=== PATIENT | female | born 1970 | race Caucasian/White ===

== ENCOUNTER 2022-04-13 00:33 | Emergency (ER) | payer SELFPAY ==
[~2022-04-13] VITALS: Ht 149.9 cm; Wt 58.1 kg
[2022-04-13] MEDS ORDERED: ACETAMINOPHEN 325MG TABLET PO STA (02:00)
[2022-04-13] MEDS ORDERED: NAPR-681 PO (04:06)
[2022-04-13 04:33] VITALS: BP 116/82
== END 2022-04-13 04:35 | disposition home or self-care (01) ==
LOC: ER 00:33
DX: S00.83XA Contusion of other part of head, initial encounter (principal); X58.XXXA Exposure to other specified factors, initial encounter; Y93.89 Activity, other specified; Y92.89 Other specified places as the place of occurrence of the external cause; Y99.8 Other external cause status; Z88.0 Allergy status to penicillin
CPT/HCPCS: 99284